=== PATIENT | female | born 1970 | race Caucasian/White ===

== ENCOUNTER 2016-10-21 13:03 | Inpatient (IN) | payer OTHER ==
[2016-10-21 14:42] VITALS: BMI 22.3
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
--- NOTE | 2016-10-21 20:27 | HP ---
COWS - Scale Resting Pulse: 0= [place] 80 or Below Sweatin=Flushed/Facial Moisture Restless Observation: 1= Difficult to Sit Still Pupil Size: 0= Normal to Room Light Bone or Joint Aches: 2= Severe Diffuse Aches Runny Nose/ Eye Tearin= Runny Nose/Eyes GI Upset > 30mins: 2= Nausea/Diarrhea Tremor Observation: 2= Slight Tremor Visible Yawning Observation: 1= 1-2x During Session Anxiety or Irritability: 1=Feels Anxious/Irritable Goose Flesh Skin: 3=Piloerection COWS Score: 16 Admission ROS S - HPI Chief Complaint: WITHDRAWAL SYMPTOMS Allergies/Adverse Reactions: Allergies Allergy/AdvReac Type Severity Reaction Status Date / Time codeine [Codeine] Allergy Mild Rash Verified 10/21/16 15:26 History of Present Illness: 46 Y.O. WOMAN WITH AN EXTENSIVE HISTORY OF OPIOID DEPENDENCE IS SEEKING DETOX. HER LAST ADMISSION HERE WAS IN 03/2016. CLIENT RETURNS FROM [facility] ER WHERE SHE WAS TREATED FOR A CLOSED RIGHT CLAVICULAR FRACTURE. Exam Limitations: Physical Impairment (RIGHT CLAVICULAR FX; WEARING A SHOULDER IMMOBILIZER. AMBULATES WITH A CANE.) - Ebola screening Have you traveled outside of the country in the last 21 days: No Have you had contact with anyone from an Ebola affected area: No Have you been sick,other than usual withdrawal symptoms: No Do you have a fever: No - Review of Systems Constitutional: Chills, Diaphoresis, Loss of Appetite, Unintentional Wgt. Loss EENT: reports: Tearing, Nose Congestion Respiratory: reports: Shortness of Breath Cardiac: reports: Irregular Heart Rate, Lightheadedness GI: reports: Diarrhea, Nausea, Poor Appetite, Vomiting : reports: No Symptoms Reported Musculoskeletal: reports: Back Pain, Other (RIGHT SHOULDER PAIN; LEFT HIP PAIN) Integumentary: reports: Bruising (RIGHT SHOULDER) Neuro: reports: Numbness (B/L UPPER AND LOWER EXTREMITIES), Tremors Endocrine: reports: No Symptoms Reported Hematology: reports: Easy Bleeding (Factor 5 leiden, hyperhomocysteinemia, hemochromatosis), Easy Bruising Psychiatric: reports: Orientated x3, Anxious, Depressed Other Systems: Reviewed and Negative Patient History - Patient Medical History Hx Anemia: Yes Hx Asthma: Yes (Albuterol) Hx Chronic Obstructive Pulmonary Disease (COPD): Yes Hx Cancer: No Hx Cardiac Disorders: No Hx Congestive Heart Failure: No Hx Hypertension: No Hx Hypercholesterolemia: No Hx Pacemaker: No HX Cerebrovascular Accident: No Hx Seizures: No Hx Dementia: No Hx Diabetes: No Hx Gastrointestinal Disorders: Yes (S/P GASTRIC BYPASS SX) Hx Liver Disease: Yes (hemochromatosis) Hx Genitourinary Disorders: No Hx Sexually Transmitted Disorders: No Hx Renal Disease (ESRD): No Hx Thyroid Disease: No Hx Human Immunodeficiency Virus (HIV): No (NEGATIVE HX) Hx Hepatitis C: No Hx Depression: Yes Hx Suicide Attempt: Yes (AT AGE 13) Hx Bipolar Disorder: No Hx Schizophrenia: No - Patient Surgical History Past Surgical History: Yes Hx Neurologic Surgery: No Hx Cataract Extraction: No Hx Cardiac Surgery: No Hx Lung Surgery: No Hx Breast Surgery: No Hx Abdominal Surgery: Yes (lap gastric bypass [id number]) Hx Appendectomy: No Hx Cholecystectomy: Yes (1990) Hx Genitourinary Surgery: No Hx Section: No Hx Orthopedic Surgery: No Other Surgical History: Gastric bypass in 2001 Bladder sx in 2003; TUBAL LIGATION 1991 Anesthesia Reaction: No - PPD History Previous Implant?: Yes Documented Results: Negative w/proof Implanted On Prior R Admission?: Yes Date: 03/25/16 Results: 0 PPD to be Administered?: No - Reproductive History Patient is a Female of Child Bearing Age (11 -55 yrs old): No Last Menstrual Period: 07/17/11 - Smoking Cessation Smoking history: Current some day smoker Have you smoked in the past 12 months: Yes Aproximately how many cigarettes per day: 25 Hx Chewing Tobacco Use: No Initiated information on smoking cessation: Yes 'Breaking Loose' booklet given: 10/21/16 - Substance & Tx. History Hx Alcohol Use: No Hx Substance Use: Yes Substance Use Type: Heroin Hx Substance Use Treatment: Yes (DETOX AND REHAB ) - Substances Abused Heroin Route: Inhalation Frequency: Daily Amount used: 15-20 bags Age of first use: 36 Date of Last Use: 10/21/16 Methadone Route: Oral Frequency: 3-6 times per week Amount used: 10mg Age of first use: 38 Date of Last Use: 10/17/16 Marijuana/Hashish Route: Smoking Frequency: Daily Amount used: 1-2 JOINTS Age of first use: 15 Date of Last Use: 10/21/16 Family Disease History - Family Disease History Family Disease History: Other: Father (alcohol and dsa), Mother (alcohol and dsa ) Admission Physical Exam [facility] - Vital Signs Vital Signs: Vital Signs - 24 hr 10/21/16 14:39 Temperature 96 F L Pulse Rate 79 Respiratory 19 Rate Blood Pressure 130/74 - Physical General Appearance: Yes: Tremorous, Irritable, Anxious HEENTM: Yes: Normal Voice, PRUDENCIO, Pharynx Normal, Tm's normal Respiratory: Yes: Chest Non-Tender, Lungs Clear, Normal Breath Sounds, No Respiratory Distress, No Accessory Muscle Use Neck: Yes: No masses,lesions,Nodules, Trachea in good position Breast: Yes: Breast Exam Deferred Cardiology: Yes: Regular Rhythm, Regular Rate Abdominal: Yes: Flat, Soft Genitourinary: Yes: Other (NO COMPLAINTS REPORTED) Back: Yes: Normal Inspection Musculoskeletal: Yes: Back pain, Joint Stiffness, Joint swelling (RIGHT SHOULDER ), Muscle Pain, Other (CLOSED RIGHT CLAVICULAR FX; REPORTS SHE NEEDS LEFT HIP REPLACEMENT SX. AMBULATES WITH A CANE) Extremities: Yes: Swelling (B/L LE), Calf Tenderness Neurological: Yes: Fully Oriented, Alert, Normal Mood/Affect, Normal Response Integumentary: Yes: Pitting Edema (B/L LE EX), Other (BRUISE ON RIGHT SHOULDER) Lymphatic: Yes: Within Normal Limits - Diagnostic (1) Cannabis dependence Current Visit: Yes Status: Chronic (2) Closed right clavicular fracture Current Visit: Yes Status: Acute Qualifiers: Encounter type: initial encounter Clavicle location: lateral end Fracture alignment: displaced Qualified Code(s): S42.031A - Displaced fracture of lateral end of right clavicle, initial encounter for closed fracture (3) Nicotine dependence Current Visit: Yes Status: Chronic (4) Opioid dependence with withdrawal Current Visit: Yes Status: Chronic (5) Asthma Current Visit: Yes Status: Chronic (6) chronic edema of legs Current Visit: Yes Status: Chronic (7) History of cellulitis Current Visit: Yes Status: Acute (8) History of DVT (deep vein thrombosis) Current Visit: Yes Status: Acute Comment: REPORTS SHE HAS NOT TAKEN HER COUMADIN IN 2 WEEKS Cleared for Admission [facility] - Detox or Rehab [facility] Level of Care: Medically Managed Detox Regimen/Protocol: Methadone [facility] Breath Alcohol Content Breath Alcohol Content: 0 Urine Pregancy Test - Result Urine Test Results: Negative- NO Line Present Urine Drug Screen - Results Drug Screen Negative: No Urine Drug Screen Results: THC-Marijuana, OPI-Opiates, MTD-Methadone
[2016-10-21] MEDS ORDERED: MAGNESIUM HYDROX 2400MG/30ML ORAL SUSPENSION 30 ML CUP PO PRN (20:49)
[2016-10-21] MEDS ORDERED: MAGNESIUM CITRATE 300 ML BOTTLE PO PRN (20:49)
[2016-10-21] MEDS ORDERED: IBUPROFEN 400 MG TABLET (FP) PO PRN (20:49)
[2016-10-21] MEDS ORDERED: METHADONE HCL 10 MG TABLET (FOR DETOX USE ONLY) PO ONE ×2 (20:49→23:00)
[2016-10-21] MEDS ORDERED: guaiFENesin/D-METHORPHAN HB 10 ML UNIT-DOSE CUPS PO PRN (20:49)
[2016-10-21] MEDS ORDERED: LOPERAMIDE HCL 2 MG CAPSULE PO PRN (20:49)
[2016-10-21] MEDS ORDERED: MAG HYDROX/AL HYDROX/SIMETH 30 ML UNIT-DOSE CUP PO PRN (20:49)
[2016-10-21] MEDS ORDERED: MENTHOL/PHENOL 1 EACH UD MM PRN (20:49)
[2016-10-21] MEDS ORDERED: diphenhydrAMINE HCL 50 MG CAPSULE PO PRN (20:49)
[2016-10-21] MEDS ORDERED: P-EPHED 60MG/TRIPROLIDI 2.5MG TABLET PO PRN (20:49)
[2016-10-21] MEDS: THIAMINE HCL 100 MG TABLET (FP) PO SCH (22:39)
[2016-10-21] MEDS: diazePAM 5 MG TABLET PO PRN (22:39)
[2016-10-21] MEDS: HYDROCHLOROTHIAZIDE 25 MG TABLET (FP) PO SCH (22:39)
[2016-10-22] MEDS ORDERED: IBUPROFEN 400 MG TABLET (FP) PO SCH (09:45)
[2016-10-22] MEDS ORDERED: METHADONE HCL 10 MG TABLET (FOR DETOX USE ONLY) PO ONE (10:00)
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
[2016-10-22 10:21] LABS: ALBUMIN 3.7 g/dl (3.4-5.0); ALK PHOS 153 U/L (45-117); ANION GAP 8 (8-16); BILIRUBIN,TOTAL 0.4 mg/dL (0.2-1.0); CALCIUM 9.3 mg/dL (8.5-10.1); CO2 28 mmol/L (21-32); COCKROFT - GAULT 106.7345; CREATININE 0.6 mg/dL (0.55-1.02); GLUCOSE,RANDOM 105 mg/dL (74-106); SGOT/AST 27 U/L (15-37); SGPT/ALT 19 U/L (12-78); TOT PROT 6.8 g/dl (6.4-8.2)
[2016-10-22 10:27] LABS: MCH 30.4 pg (25.7-33.7); MCHC 33.7 g/dl (32.0-36.0); MEAN CELL VOLUME 90.1 fl (80-96); PLATELET COUNT 239 K/MM3 (134-434); RDW 15.8 % (11.6-15.6); WHITE BLOOD COUNT 7.4 K/mm3 (4.0-10.0)
[2016-10-22 10:45] LABS: INR 1.06 (0.82-1.09); PROTHROMBIN TIME (PATIENT) 11.7 SEC (9.98-11.88)
[2016-10-22] MEDS: LIDOCAINE 5% TOPICAL PATCH TP SCH (10:50)
[2016-10-22] MEDS: BUDESONIDE/FORMETEROL FUMARATE 80/4.5 mcg INHALER IH PRN ×2 (10:51→22:20)
[2016-10-22] MEDS: diazePAM 5 MG TABLET PO PRN ×3 (10:52→22:20)
[2016-10-22] MEDS: FOLIC ACID 1 MG TABLET (FP) PO SCH (10:52)
[2016-10-22] MEDS: METHYL SALICYLATE/MENTHOL OINT 30 GM TUBE TP SCH ×2 (10:53→22:46)
[2016-10-22] MEDS: HYDROCHLOROTHIAZIDE 25 MG TABLET (FP) PO SCH ×2 (10:53→22:20)
[2016-10-22] MEDS: NICOTINE 21 MG/24 HOURS TOPICAL PATCH TD SCH (10:56)
--- NOTE | 2016-10-22 11:00 | PN ---
BHS COWS - Scale Resting Pulse: 1= [place] 81-100 Sweatin=Flushed/Facial Moisture Restless Observation: 1= Difficult to Sit Still Pupil Size: 0= Normal to Room Light Bone or Joint Aches: 2= Severe Diffuse Aches Runny Nose/ Eye Tearin= Nasal Congestion GI Upset > 30mins: 2= Nausea/Diarrhea Tremor Observation of Outstretched Hands: 2= Slight Tremor Visible Yawning Observation: 2= >3x During Session Anxiety or Irritability: 2=Irritable/Anxious Goose Flesh Skin: 0=Smooth Skin COWS Score: 15 BHS Progress Note (SOAP) Subjective: clavicle/shoulder pain sweats shakes interrupted sleep body aches Objective: 10/22/16 11:00 Vital Signs Temperature 98.6 F 10/22/16 09:39 Pulse Rate 84 10/22/16 09:39 Respiratory Rate 20 10/22/16 09:39 Blood Pressure 146/85 10/22/16 09:39 O2 Sat by Pulse Oximetry (%) Laboratory Tests 10/22/16 06:00 Sodium 139 Potassium 4.8 Chloride 103 Carbon Dioxide 28 Anion Gap 8 BUN 13 Creatinine 0.6 Creat Clearance w eGFR > 60 Random Glucose 105 D Calcium 9.3 Total Bilirubin 0.4 D AST 27 D ALT 19 D Alkaline Phosphatase 153 H D Total Protein 6.8 Albumin 3.7 labs pending awake/alert ambulating no acute distress Assessment: 10/22/16 11:01 withdrawal sx Plan: continue detox increase fluids motrin 800 tid lidocaine patch cont immobolizer for shoulder analgesic balhuang cortez tx
--- NOTE | 2016-10-22 11:37 | EKG ---
Test Reason : Blood Pressure : / mmHG Vent. Rate : 073 BPM Atrial Rate : 073 BPM P-R Int : 104 ms QRS Dur : 072 ms QT Int : 410 ms P-R-T Axes : 033 067 054 degrees QTc Int : 451 ms SINUS RHYTHM WITH SHORT CO OTHERWISE NORMAL ECG NO PREVIOUS ECGS AVAILABLE Confirmed by GAGAN PALAM, RISHABH ([id number]) on 10/22/2016 11:36:48 AM Referred By: Confirmed By:RISHABH FARAH MD
[2016-10-22] MEDS: ALBUTEROL SO4 2.5/IPRATROPIUM 0.5 INH SOL 3 ML VIAL.NEB. NEB SCH ×3 (12:00→23:05)
[2016-10-22] MEDS: ALBUTEROL SO4 6.7 GM HFA INHALER IH PRN ×2 (13:48→17:13)
[2016-10-22 15:24] LABS: URINE APPEARANCE CLEAR; URINE BILIRUBIN NEGATIVE (NEGATIVE); URINE BLOOD NEGATIVE (NEGATIVE); URINE COLOR YELLOW; URINE GLUCOSE (UA) NEGATIVE (NEGATIVE); URINE KETONE TRACE (NEGATIVE); URINE LEUK ESTERASE NEGATIVE (NEGATIVE); URINE NITRITE NEGATIVE (NEGATIVE); URINE PROTEIN NEGATIVE (NEGATIVE); URINE UROBILINOGEN 4.0 E.U/dl E.U./dl (0.2-1.0)
[2016-10-22] MEDS: IBUPROFEN 400 MG TABLET (FP) PO PRN (17:11)
[2016-10-22] MEDS: WARFARIN NA 10 MG TABLET (FP) PO SCH (17:12)
[2016-10-22] MEDS: NICOTINE POLACRILEX 2 MG GUM BC PRN ×2 (19:29→23:05)
[2016-10-22] MEDS: THIAMINE HCL 100 MG TABLET (FP) PO SCH (22:20)
[2016-10-22] MEDS: ZOLPIDEM TARTRATE 5 MG TABLET PO PRN (22:20)
[2016-10-23] MEDS: diazePAM 5 MG TABLET PO PRN ×5 (06:21→23:59)
[2016-10-23] MEDS: ALBUTEROL SO4 2.5/IPRATROPIUM 0.5 INH SOL 3 ML VIAL.NEB. NEB SCH ×2 (06:22→12:00)
[2016-10-23] MEDS ORDERED: METHADONE HCL 5 MG TABLET (FOR DETOX USE ONLY) PO ONE (10:00)
[2016-10-23] MEDS: METHYL SALICYLATE/MENTHOL OINT 30 GM TUBE TP SCH ×2 (10:44→22:25)
[2016-10-23] MEDS: BUDESONIDE/FORMETEROL FUMARATE 80/4.5 mcg INHALER IH PRN ×2 (10:45→22:26)
[2016-10-23] MEDS: ALBUTEROL SO4 6.7 GM HFA INHALER IH PRN ×2 (10:45→22:26)
[2016-10-23] MEDS: FOLIC ACID 1 MG TABLET (FP) PO SCH (10:45)
[2016-10-23] MEDS: HYDROCHLOROTHIAZIDE 25 MG TABLET (FP) PO SCH ×2 (10:46→22:25)
[2016-10-23] MEDS: LIDOCAINE 5% TOPICAL PATCH TP SCH (10:46)
[2016-10-23] MEDS: NICOTINE 21 MG/24 HOURS TOPICAL PATCH TD SCH (10:47)
[2016-10-23] MEDS: NICOTINE POLACRILEX 2 MG GUM BC PRN ×3 (10:52→17:48)
--- NOTE | 2016-10-23 11:28 | PN ---
BHS COWS - Scale Resting Pulse: 1= [place] 81-100 Sweatin=Flushed/Facial Moisture Restless Observation: 0= Sits Still Pupil Size: 0= Normal to Room Light Bone or Joint Aches: 2= Severe Diffuse Aches Runny Nose/ Eye Tearin= Runny Nose/Eyes GI Upset > 30mins: 0= None Tremor Observation of Outstretched Hands: 2= Slight Tremor Visible Yawning Observation: 2= >3x During Session Anxiety or Irritability: 2=Irritable/Anxious Goose Flesh Skin: 0=Smooth Skin COWS Score: 13 BHS Progress Note (SOAP) Subjective: agitation anxiety sweats shakes body aches Objective: 10/23/16 11:27 Vital Signs Temperature 97.9 F 10/23/16 10:36 Pulse Rate 82 10/23/16 10:36 Respiratory Rate 18 10/23/16 10:36 Blood Pressure 124/81 10/23/16 10:36 O2 Sat by Pulse Oximetry (%) Laboratory Tests 10/22/16 10/22/16 10/22/16 06:00 06:00 06:00 WBC 7.4 D RBC 3.94 Hgb 12.0 Hct 35.5 MCV 90.1 MCHC 33.7 RDW 15.8 H Plt Count 239 MPV 10.0 INR Sodium 139 Potassium 4.8 Chloride 103 Carbon Dioxide 28 Anion Gap 8 BUN 13 Creatinine 0.6 Creat Clearance w eGFR > 60 Random Glucose 105 D Calcium 9.3 Total Bilirubin 0.4 D AST 27 D ALT 19 D Alkaline Phosphatase 153 H D Total Protein 6.8 Albumin 3.7 Urine Color Urine Appearance Urine pH Ur Specific [place] Urine Protein Urine Glucose (UA) Urine Ketones Urine Blood Urine Nitrite Urine Bilirubin Urine Urobilinogen Ur Leukocyte Esterase RPR Titer Nonreactive 10/22/16 10/22/16 07:00 09:50 WBC RBC Hgb Hct MCV MCHC RDW Plt Count MPV INR 1.06 D Sodium Potassium Chloride Carbon Dioxide Anion Gap BUN Creatinine Creat Clearance w eGFR Random Glucose Calcium Total Bilirubin AST ALT Alkaline Phosphatase Total Protein Albumin Urine Color Yellow Urine Appearance Clear Urine pH 6.0 Ur Specific [place] 1.015 Urine Protein Negative Urine Glucose (UA) Negative Urine Ketones Trace H Urine Blood Negative Urine Nitrite Negative Urine Bilirubin Negative Urine Urobilinogen 4.0 e.u/dl H Ur Leukocyte Esterase Negative RPR Titer awake/alert ambulating no acute distress Assessment: 10/23/16 11:27 withdrawal sx Plan: continue detox increase fluids
[2016-10-23] MEDS: WARFARIN NA 10 MG TABLET (FP) PO SCH (17:48)
[2016-10-23] MEDS: THIAMINE HCL 100 MG TABLET (FP) PO SCH (22:24)
[2016-10-23] MEDS: ZOLPIDEM TARTRATE 5 MG TABLET PO PRN (22:24)
[2016-10-24] MEDS: diazePAM 5 MG TABLET PO PRN ×4 (04:14→17:09)
[2016-10-24] MEDS: ALBUTEROL SO4 2.5/IPRATROPIUM 0.5 INH SOL 3 ML VIAL.NEB. NEB SCH ×5 (06:47→23:08)
[2016-10-24] MEDS ORDERED: METHADONE HCL 5 MG TABLET (FOR DETOX USE ONLY) PO ONE (10:00)
[2016-10-24 10:15] LABS: INR 1.61 (0.82-1.09); PROTHROMBIN TIME (PATIENT) 17.9 SEC (9.98-11.88)
[2016-10-24] MEDS: METHYL SALICYLATE/MENTHOL OINT 30 GM TUBE TP SCH ×2 (11:22→22:23)
[2016-10-24] MEDS: FOLIC ACID 1 MG TABLET (FP) PO SCH (11:22)
[2016-10-24] MEDS: LIDOCAINE 5% TOPICAL PATCH TP SCH (11:23)
[2016-10-24] MEDS: HYDROCHLOROTHIAZIDE 25 MG TABLET (FP) PO SCH ×2 (11:23→22:24)
[2016-10-24] MEDS: NICOTINE 21 MG/24 HOURS TOPICAL PATCH TD SCH (11:24)
[2016-10-24] MEDS: NICOTINE POLACRILEX 2 MG GUM BC PRN (12:46)
--- NOTE | 2016-10-24 14:18 | PN ---
S Progress Note (SOAP) Subjective: ALERT,IRRITABLE,ANXIOUS,INTERRUPTED SLEEP,PAIN IN THE BODY AND BACK Objective: 10/24/16 14:15 Vital Signs Temperature 98.2 F 10/24/16 10:00 Pulse Rate 88 10/24/16 10:00 Respiratory Rate 18 10/24/16 10:00 Blood Pressure 100/68 10/24/16 10:00 O2 Sat by Pulse Oximetry (%) 10/24/16 14:16 Laboratory Last Values WBC 7.4 K/mm3 (4.0-10.0) D 10/22/16 06:00 RBC 3.94 M/mm3 (3.60-5.2) 10/22/16 06:00 Hgb 12.0 GM/dL (10.7-15.3) 10/22/16 06:00 Hct 35.5 % (32.4-45.2) 10/22/16 06:00 MCV 90.1 fl (80-96) 10/22/16 06:00 MCHC 33.7 g/dl (32.0-36.0) 10/22/16 06:00 RDW 15.8 % (11.6-15.6) H 10/22/16 06:00 Plt Count 239 K/MM3 (134-434) 10/22/16 06:00 MPV 10.0 fl (7.5-11.1) 10/22/16 06:00 INR 1.61 (0.82-1.09) H D 10/24/16 07:50 Sodium 139 mmol/L (136-145) 10/22/16 06:00 Potassium 4.8 mmol/L (3.5-5.1) 10/22/16 06:00 Chloride 103 mmol/L (98-107) 10/22/16 06:00 Carbon Dioxide 28 mmol/L (21-32) 10/22/16 06:00 Anion Gap 8 (8-16) 10/22/16 06:00 BUN 13 mg/dL (7-18) 10/22/16 06:00 Creatinine 0.6 mg/dL (0.55-1.02) 10/22/16 06:00 Creat Clearance w eGFR > 60 (>60) 10/22/16 06:00 Random Glucose 105 mg/dL (74-106) D 10/22/16 06:00 Calcium 9.3 mg/dL (8.5-10.1) 10/22/16 06:00 Total Bilirubin 0.4 mg/dL (0.2-1.0) D 10/22/16 06:00 AST 27 U/L (15-37) D 10/22/16 06:00 ALT 19 U/L (12-78) D 10/22/16 06:00 Alkaline Phosphatase 153 U/L (45-117) H D 10/22/16 06:00 Total Protein 6.8 g/dl (6.4-8.2) 10/22/16 06:00 Albumin 3.7 g/dl (3.4-5.0) 10/22/16 06:00 Urine Color Yellow 10/22/16 09:50 Urine Appearance Clear 10/22/16 09:50 Urine pH 6.0 (5.0-8.0) 10/22/16 09:50 Ur Specific [place] 1.015 (1.005-1.025) 10/22/16 09:50 Urine Protein Negative (NEGATIVE) 10/22/16 09:50 Urine Glucose (UA) Negative (NEGATIVE) 10/22/16 09:50 Urine Ketones Trace (NEGATIVE) H 10/22/16 09:50 Urine Blood Negative (NEGATIVE) 10/22/16 09:50 Urine Nitrite Negative (NEGATIVE) 10/22/16 09:50 Urine Bilirubin Negative (NEGATIVE) 10/22/16 09:50 Urine Urobilinogen 4.0 e.u/dl E.U./dl (0.2-1.0) H 10/22/16 09:50 Ur Leukocyte Esterase Negative (NEGATIVE) 10/22/16 09:50 RPR Titer Nonreactive (NONREACTIVE) 10/22/16 06:00 10/24/16 14:17 Assessment: 10/24/16 14:17 WITHDRAWAL SYMPTOM Plan: CONTINUE DETOX,INR IN AM
[2016-10-24] MEDS: IBUPROFEN 400 MG TABLET (FP) PO PRN (17:08)
[2016-10-24] MEDS: WARFARIN NA 10 MG TABLET (FP) PO SCH (17:09)
[2016-10-24] MEDS: BUDESONIDE/FORMETEROL FUMARATE 80/4.5 mcg INHALER IH PRN (22:24)
[2016-10-24] MEDS: THIAMINE HCL 100 MG TABLET (FP) PO SCH (22:24)
[2016-10-24] MEDS: ZOLPIDEM TARTRATE 5 MG TABLET PO PRN (22:24)
[2016-10-24] MEDS: ALBUTEROL SO4 6.7 GM HFA INHALER IH PRN (22:24)
[2016-10-25] MEDS: hydrOXYzine PAMOATE 50 MG CAPSULE (FP) PO PRN ×3 (03:02→22:19)
[2016-10-25] MEDS: ALBUTEROL SO4 2.5/IPRATROPIUM 0.5 INH SOL 3 ML VIAL.NEB. NEB SCH ×3 (05:29→23:29)
[2016-10-25] MEDS ORDERED: METHADONE HCL 10 MG TABLET (FOR DETOX USE ONLY) PO ONE (10:00)
[2016-10-25 10:34] LABS: INR 2.49 (0.82-1.09); PROTHROMBIN TIME (PATIENT) 27.9 SEC (9.98-11.88)
[2016-10-25] MEDS: BUDESONIDE/FORMETEROL FUMARATE 80/4.5 mcg INHALER IH PRN (10:51)
[2016-10-25] MEDS: HYDROCHLOROTHIAZIDE 25 MG TABLET (FP) PO SCH ×2 (10:52→22:19)
[2016-10-25] MEDS: METHYL SALICYLATE/MENTHOL OINT 30 GM TUBE TP SCH ×2 (10:52→22:18)
[2016-10-25] MEDS: FOLIC ACID 1 MG TABLET (FP) PO SCH (10:52)
[2016-10-25] MEDS: ALBUTEROL SO4 6.7 GM HFA INHALER IH PRN (10:52)
[2016-10-25] MEDS: NICOTINE 21 MG/24 HOURS TOPICAL PATCH TD SCH (10:53)
[2016-10-25] MEDS: LIDOCAINE 5% TOPICAL PATCH TP SCH (10:55)
--- NOTE | 2016-10-25 12:30 | PN ---
S Progress Note (SOAP) Subjective: ALERT,IRRITABLE,ANXIOUS,INTERRUPTED SLEEP,TREMOR Objective: 10/25/16 12:29 Vital Signs Temperature 98.1 F 10/25/16 09:51 Pulse Rate 81 10/25/16 09:51 Respiratory Rate 16 10/25/16 09:51 Blood Pressure 118/86 10/25/16 09:51 O2 Sat by Pulse Oximetry (%) Assessment: 10/25/16 12:30 WITHDRAWAL SYMPTOM Plan: CONTINUE DETOX
[2016-10-25] MEDS: WARFARIN NA 10 MG TABLET (FP) PO SCH (17:29)
--- NOTE | 2016-10-25 17:30 | PN ---
[facility] Progress Note Note: Laboratory Results - last 24 hr 10/25/16 07:40 INR 2.49 H D therapeutic range for prevention of dvt history on coumadin 10 mgs po daily repeat inr in am
[2016-10-25] MEDS: ZOLPIDEM TARTRATE 5 MG TABLET PO PRN (21:20)
[2016-10-25] MEDS: THIAMINE HCL 100 MG TABLET (FP) PO SCH (22:19)
[2016-10-26] MEDS: ALBUTEROL SO4 2.5/IPRATROPIUM 0.5 INH SOL 3 ML VIAL.NEB. NEB SCH (05:30)
[2016-10-26] MEDS: IBUPROFEN 400 MG TABLET (FP) PO PRN (05:31)
[2016-10-26] MEDS ORDERED: METHADONE HCL 5 MG TABLET (FOR DETOX USE ONLY) PO ONE (06:00)
--- NOTE | 2016-10-26 08:55 | DS ---
[facility] Detox Discharge Summary Admission Date: 10/21/16 Discharge Date: 10/26/16 - History Present History: Cannabis Dependence, Opioid Dependence, Sedative Dependence - Physical Exam Results Vital Signs: Vital Signs Temperature 96.3 F L 10/26/16 06:00 Pulse Rate 82 10/26/16 06:00 Respiratory Rate 16 10/26/16 06:00 Blood Pressure 120/79 10/26/16 06:00 O2 Sat by Pulse Oximetry (%) - Treatment Hospital Course: Detox Protocol Followed, Detoxed Safely, Responded well, Discharged Condition Good, Rehab Referral Accepted - Medication Discharge Medications: Ambulatory Orders Albuterol Sulfate Inhaler - [Ventolin Hfa Inhaler -] 2 inh PO Q4H PRN 10/21/16 Folic Acid - 2 mg PO DAILY 10/21/16 Hydrochlorothiazide [Hctz -] 25 mg PO BID 10/21/16 Salmeterol/Fluticasone [Advair 250Mcg/50Mcg] 1 inh PO BID PRN 10/21/16 Warfarin Na [Coumadin] 10 mg PO DAILY@1800 10/21/16 - Diagnosis (1) Closed right clavicular fracture Current Visit: Yes Status: Acute Qualifiers: Encounter type: initial encounter Clavicle location: lateral end Fracture alignment: displaced Qualified Code(s): S42.031A - Displaced fracture of lateral end of right clavicle, initial encounter for closed fracture (2) History of DVT (deep vein thrombosis) Current Visit: Yes Status: Suspected (3) History of cellulitis Current Visit: Yes Status: Suspected (4) Asthma Current Visit: Yes Status: Chronic (5) Cannabis dependence Current Visit: Yes Status: Chronic (6) Nicotine dependence Current Visit: Yes Status: Chronic Qualifiers: Nicotine product type: cigarettes Substance use status: uncomplicated Qualified Code(s): F17.210 - Nicotine dependence, cigarettes, uncomplicated (7) Opioid dependence with withdrawal Current Visit: Yes Status: Chronic (8) chronic edema of legs Current Visit: Yes Status: Chronic (9) Weight decreased Current Visit: No Status: Active (10) anxiety and depression Current Visit: No Status: Active (11) cellulitis of righ forearm Current Visit: No Status: Active (12) old dvt of right leg Current Visit: No Status: Resolved (13) Sedative/hypnotic withdrawal without complication Current Visit: Yes Status: Chronic (14) Substance induced mood disorder Current Visit: No Status: Acute (15) Substance-induced sleep disorder Current Visit: No Status: Acute (16) Cellulitis of lower extremity Current Visit: No Status: Chronic - AMA Did Patient Leave Against Medical Advice: No
[2016-10-26] MEDS: LIDOCAINE 5% TOPICAL PATCH TP SCH (10:31)
[2016-10-26] MEDS: HYDROCHLOROTHIAZIDE 25 MG TABLET (FP) PO SCH ×2 (10:31→14:24)
[2016-10-26] MEDS: BUDESONIDE/FORMETEROL FUMARATE 80/4.5 mcg INHALER IH PRN ×2 (10:31→21:19)
[2016-10-26] MEDS: FOLIC ACID 1 MG TABLET (FP) PO SCH (10:31)
[2016-10-26] MEDS: NICOTINE 21 MG/24 HOURS TOPICAL PATCH TD SCH (10:32)
[2016-10-26] MEDS: METHYL SALICYLATE/MENTHOL OINT 30 GM TUBE TP SCH ×2 (10:33→21:19)
--- NOTE | 2016-10-26 11:57 | HP ---
[facility] Rehab Assess/Revision - Admission History Admitted to Rehab from: [facility] [place] Date of Admission to Rehab: 10/26/16 - Vital signs Vital Signs: Vital Signs Period Temp Pulse Resp BP Sys/Mckenna Pulse Ox Last 24 Hr 96.3 F-98.2 F 58-91 16-20 91-145/62-88 - Findings Detox History & Physical reviewed: Yes Concur with findings: Yes
[2016-10-26] MEDS ORDERED: ALBUTEROL SO4 2.5/IPRATROPIUM 0.5 INH SOL 3 ML VIAL.NEB. NEB PRN (12:02)
--- NOTE | 2016-10-26 13:41 | PN ---
S Progress Note Note: Pt. wants to start OTP while in rehab. Pt. was previously enrolled in [facility] but left because of personal problems. Admit to [facility]
[2016-10-26] MEDS ORDERED: METHADONE HCL 5 MG TABLET PO ONE (14:00)
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
[2016-10-26] MEDS: ZIPRASIDONE 40 MG CAPSULE (FP) PO SCH (15:25)
[2016-10-26] MEDS ORDERED: PT OWN MED DRAWER 7, Y5N ONE ×2 (18:17→21:20)
[2016-10-26] MEDS: WARFARIN NA 10 MG TABLET (FP) PO SCH (18:30)
[2016-10-26 20:53] LABS: INR 2.91 (0.82-1.09); PROTHROMBIN TIME (PATIENT) 32.7 SEC (9.98-11.88)
[2016-10-26] MEDS: THIAMINE HCL 100 MG TABLET (FP) PO SCH (21:15)
[2016-10-26] MEDS: busPIRone HCL 10 MG TABLET (FP) PO SCH (21:17)
[2016-10-26] MEDS: SUVOREXANT 10 MG TABLET PO SCH (21:19)
[2016-10-26] MEDS: ALBUTEROL SO4 6.7 GM HFA INHALER IH PRN (21:20)
[2016-10-27] MEDS: ALBUTEROL SO4 6.7 GM HFA INHALER IH PRN (01:00)
[2016-10-27] MEDS ORDERED: PT OWN MED DRAWER 7, Y5N ONE ×3 (01:01→17:00)
[2016-10-27] MEDS ORDERED: METHADONE HCL 10 MG TABLET PO SCH (06:00)
[2016-10-27] MEDS: ACETAMINOPHEN 325 MG TABLET (FP) PO PRN (06:23)
[2016-10-27] MEDS: HYDROCHLOROTHIAZIDE 25 MG TABLET (FP) PO SCH ×2 (06:24→14:36)
[2016-10-27] MEDS: ZIPRASIDONE 40 MG CAPSULE (FP) PO SCH (10:19)
[2016-10-27] MEDS: METHYL SALICYLATE/MENTHOL OINT 30 GM TUBE TP SCH ×2 (10:19→22:40)
[2016-10-27] MEDS: busPIRone HCL 10 MG TABLET (FP) PO SCH ×2 (10:19→21:11)
[2016-10-27] MEDS: FOLIC ACID 1 MG TABLET (FP) PO SCH (10:19)
[2016-10-27] MEDS: NICOTINE 21 MG/24 HOURS TOPICAL PATCH TD SCH (10:20)
[2016-10-27] MEDS: LIDOCAINE 5% TOPICAL PATCH TP SCH (10:20)
[2016-10-27] MEDS: BUDESONIDE/FORMETEROL FUMARATE 80/4.5 mcg INHALER IH PRN (10:20)
[2016-10-27] MEDS ORDERED: WARFARIN NA 10 MG TABLET (FP) PO SCH (18:00)
[2016-10-27] MEDS: WARFARIN NA 5 MG TABLET (UD) PO SCH (18:30)
[2016-10-27] MEDS: THIAMINE HCL 100 MG TABLET (FP) PO SCH (21:11)
[2016-10-27] MEDS: BUDESONIDE/FORMETEROL FUMARATE 80/4.5 mcg INHALER IH SCH (21:13)
[2016-10-27] MEDS: SUVOREXANT 10 MG TABLET PO SCH (21:13)
[2016-10-27] MEDS: IBUPROFEN 400 MG TABLET (FP) PO PRN (21:14)
[2016-10-28] MEDS: IBUPROFEN 400 MG TABLET (FP) PO PRN ×2 (03:29→21:07)
[2016-10-28] MEDS ORDERED: METHADONE HCL 40 MG DISPERSABLE TABLET PO SCH (06:00)
[2016-10-28] MEDS: HYDROCHLOROTHIAZIDE 25 MG TABLET (FP) PO SCH ×2 (06:12→14:01)
[2016-10-28] MEDS ORDERED: PT OWN MED DRAWER 7, Y5N ONE (08:16)
[2016-10-28] MEDS: LIDOCAINE 5% TOPICAL PATCH TP SCH (10:23)
[2016-10-28] MEDS: NICOTINE 21 MG/24 HOURS TOPICAL PATCH TD SCH (10:23)
[2016-10-28] MEDS: ZIPRASIDONE 40 MG CAPSULE (FP) PO SCH (10:24)
[2016-10-28] MEDS: FOLIC ACID 1 MG TABLET (FP) PO SCH (10:24)
[2016-10-28] MEDS: BUDESONIDE/FORMETEROL FUMARATE 80/4.5 mcg INHALER IH SCH ×2 (10:24→21:08)
[2016-10-28] MEDS: busPIRone HCL 10 MG TABLET (FP) PO SCH ×2 (10:24→21:07)
[2016-10-28] MEDS: METHYL SALICYLATE/MENTHOL OINT 30 GM TUBE TP SCH ×2 (10:27→21:10)
[2016-10-28] MEDS: WARFARIN NA 5 MG TABLET (UD) PO SCH (18:55)
[2016-10-28] MEDS: THIAMINE HCL 100 MG TABLET (FP) PO SCH (21:09)
[2016-10-28] MEDS: SUVOREXANT 10 MG TABLET PO SCH (21:10)
[2016-10-29] MEDS: IBUPROFEN 400 MG TABLET (FP) PO PRN ×3 (03:21→21:14)
[2016-10-29] MEDS ORDERED: METHADONE 40 MG, METHADONE 10 MG PO ONE ×2 (06:00)
[2016-10-29] MEDS ORDERED: METHADONE HCL 10 MG TABLET PO SCH (06:00)
[2016-10-29] MEDS ORDERED: METHADONE 40 MG, METHADONE 20 MG PO SCH (06:00)
[2016-10-29] MEDS ORDERED: METHADONE HCL 10 MG TABLET ONE (06:06)
[2016-10-29] MEDS ORDERED: METHADONE HCL 40 MG DISPERSABLE TABLET ONE (06:07)
[2016-10-29] MEDS: HYDROCHLOROTHIAZIDE 25 MG TABLET (FP) PO SCH ×2 (06:08→14:00)
[2016-10-29] MEDS ORDERED: PT OWN MED DRAWER 7, Y5N ONE (08:30)
[2016-10-29] MEDS: NICOTINE 21 MG/24 HOURS TOPICAL PATCH TD SCH (10:00)
[2016-10-29] MEDS: ZIPRASIDONE 40 MG CAPSULE (FP) PO SCH (10:00)
[2016-10-29] MEDS: BUDESONIDE/FORMETEROL FUMARATE 80/4.5 mcg INHALER IH SCH ×2 (10:00→21:16)
[2016-10-29] MEDS: FOLIC ACID 1 MG TABLET (FP) PO SCH (10:00)
[2016-10-29] MEDS: LIDOCAINE 5% TOPICAL PATCH TP SCH (10:00)
[2016-10-29] MEDS: busPIRone HCL 10 MG TABLET (FP) PO SCH ×2 (10:00→21:14)
[2016-10-29] MEDS: NICOTINE POLACRILEX 2 MG GUM BC PRN ×3 (10:01→18:05)
[2016-10-29] MEDS: METHYL SALICYLATE/MENTHOL OINT 30 GM TUBE TP SCH ×2 (10:01→21:16)
[2016-10-29 10:30] LABS: INR 2.36 (0.82-1.09); PROTHROMBIN TIME (PATIENT) 26.4 SEC (9.98-11.88)
[2016-10-29] MEDS: WARFARIN NA 5 MG TABLET (UD) PO SCH (18:04)
[2016-10-29] MEDS: THIAMINE HCL 100 MG TABLET (FP) PO SCH (21:14)
[2016-10-29] MEDS: SUVOREXANT 10 MG TABLET PO SCH (21:16)
[2016-10-29] MEDS: CALCIUM 500MG/VIT-D 200 UNITS COMBO TABLET (FP) PO SCH (21:17)
[2016-10-30] MEDS: IBUPROFEN 400 MG TABLET (FP) PO PRN ×3 (03:28→23:51)
[2016-10-30] MEDS ORDERED: METHADONE HCL 40 MG DISPERSABLE TABLET ONE (05:59)
[2016-10-30] MEDS ORDERED: METHADONE HCL 10 MG TABLET ONE (05:59)
[2016-10-30] MEDS ORDERED: METHADONE 40 MG, METHADONE 10 MG PO ONE (06:00)
[2016-10-30] MEDS ORDERED: METHADONE HCL 10 MG TABLET PO SCH (06:00)
[2016-10-30] MEDS: HYDROCHLOROTHIAZIDE 25 MG TABLET (FP) PO SCH ×2 (06:03→15:12)
[2016-10-30] MEDS: METHADONE 40 MG, METHADONE 20 MG PO SCH (06:03)
[2016-10-30] MEDS: NICOTINE POLACRILEX 2 MG GUM BC PRN ×3 (07:27→17:56)
[2016-10-30] MEDS: BUDESONIDE/FORMETEROL FUMARATE 80/4.5 mcg INHALER IH SCH ×2 (10:02→21:25)
[2016-10-30] MEDS: busPIRone HCL 10 MG TABLET (FP) PO SCH ×2 (10:02→21:25)
[2016-10-30] MEDS: ZIPRASIDONE 40 MG CAPSULE (FP) PO SCH (10:02)
[2016-10-30] MEDS: CALCIUM 500MG/VIT-D 200 UNITS COMBO TABLET (FP) PO SCH ×2 (10:02→21:25)
[2016-10-30] MEDS: FOLIC ACID 1 MG TABLET (FP) PO SCH (10:02)
[2016-10-30] MEDS: NICOTINE 21 MG/24 HOURS TOPICAL PATCH TD SCH (10:05)
[2016-10-30] MEDS: LIDOCAINE 5% TOPICAL PATCH TP SCH (10:06)
[2016-10-30] MEDS: METHYL SALICYLATE/MENTHOL OINT 30 GM TUBE TP SCH ×2 (10:07→22:08)
[2016-10-30] MEDS: WARFARIN NA 5 MG TABLET (UD) PO SCH (17:56)
[2016-10-30] MEDS ORDERED: PT OWN MED DRAWER 7, Y5N ONE ×2 (19:23→19:27)
[2016-10-30] MEDS: SUVOREXANT 10 MG TABLET PO SCH (21:25)
[2016-10-30] MEDS: THIAMINE HCL 100 MG TABLET (FP) PO SCH (21:25)
[2016-10-31] MEDS: ACETAMINOPHEN 325 MG TABLET (FP) PO PRN ×2 (04:36→21:00)
[2016-10-31] MEDS ORDERED: METHADONE HCL 10 MG TABLET ONE (05:41)
[2016-10-31] MEDS ORDERED: METHADONE HCL 40 MG DISPERSABLE TABLET ONE (05:41)
[2016-10-31] MEDS: HYDROCHLOROTHIAZIDE 25 MG TABLET (FP) PO SCH ×2 (05:59→15:06)
[2016-10-31] MEDS: METHADONE 40 MG, METHADONE 20 MG PO SCH (05:59)
[2016-10-31] MEDS ORDERED: ALBUTEROL SO4 2.5/IPRATROPIUM 0.5 INH SOL 3 ML VIAL.NEB. NEB PRN (07:10)
[2016-10-31] MEDS ORDERED: PT OWN MED DRAWER 7, Y5N ONE (08:46)
[2016-10-31] MEDS: ZIPRASIDONE 40 MG CAPSULE (FP) PO SCH (09:48)
[2016-10-31] MEDS: FOLIC ACID 1 MG TABLET (FP) PO SCH (09:48)
[2016-10-31] MEDS: CALCIUM 500MG/VIT-D 200 UNITS COMBO TABLET (FP) PO SCH ×2 (09:48→21:00)
[2016-10-31] MEDS: busPIRone HCL 10 MG TABLET (FP) PO SCH ×2 (09:48→21:00)
[2016-10-31] MEDS: NICOTINE 21 MG/24 HOURS TOPICAL PATCH TD SCH (09:49)
[2016-10-31] MEDS: IBUPROFEN 400 MG TABLET (FP) PO PRN (09:49)
[2016-10-31] MEDS: LIDOCAINE 5% TOPICAL PATCH TP SCH (09:50)
[2016-10-31] MEDS: NICOTINE POLACRILEX 2 MG GUM BC PRN ×3 (09:50→17:59)
[2016-10-31] MEDS: BUDESONIDE/FORMETEROL FUMARATE 80/4.5 mcg INHALER IH SCH ×2 (09:50→21:02)
[2016-10-31] MEDS: METHYL SALICYLATE/MENTHOL OINT 30 GM TUBE TP SCH ×2 (09:51→21:01)
[2016-10-31] MEDS: WARFARIN NA 5 MG TABLET (UD) PO SCH (17:58)
[2016-10-31] MEDS: THIAMINE HCL 100 MG TABLET (FP) PO SCH (21:00)
[2016-10-31] MEDS: SUVOREXANT 10 MG TABLET PO SCH (21:01)
[2016-11-01] MEDS: IBUPROFEN 400 MG TABLET (FP) PO PRN ×2 (05:09→17:34)
[2016-11-01] MEDS ORDERED: METHADONE HCL 10 MG TABLET ONE (05:46)
[2016-11-01] MEDS ORDERED: METHADONE HCL 40 MG DISPERSABLE TABLET ONE (05:46)
[2016-11-01] MEDS: METHADONE 40 MG, METHADONE 20 MG PO SCH (06:36)
[2016-11-01] MEDS: HYDROCHLOROTHIAZIDE 25 MG TABLET (FP) PO SCH ×2 (06:37→15:02)
[2016-11-01] MEDS ORDERED: PT OWN MED DRAWER 7, Y5N ONE (08:45)
[2016-11-01] MEDS: ALBUTEROL SO4 6.7 GM HFA INHALER IH PRN (09:40)
[2016-11-01] MEDS: BUDESONIDE/FORMETEROL FUMARATE 80/4.5 mcg INHALER IH SCH ×2 (09:40→21:11)
[2016-11-01] MEDS: NICOTINE POLACRILEX 2 MG GUM BC PRN ×4 (09:41→21:13)
[2016-11-01] MEDS: ZIPRASIDONE 40 MG CAPSULE (FP) PO SCH (09:42)
[2016-11-01] MEDS: CALCIUM 500MG/VIT-D 200 UNITS COMBO TABLET (FP) PO SCH ×2 (09:42→21:10)
[2016-11-01] MEDS: FOLIC ACID 1 MG TABLET (FP) PO SCH (09:42)
[2016-11-01] MEDS: busPIRone HCL 10 MG TABLET (FP) PO SCH ×2 (09:42→21:10)
[2016-11-01] MEDS: METHYL SALICYLATE/MENTHOL OINT 30 GM TUBE TP SCH ×2 (09:42→21:11)
[2016-11-01] MEDS: NICOTINE 21 MG/24 HOURS TOPICAL PATCH TD SCH (09:43)
[2016-11-01] MEDS: LIDOCAINE 5% TOPICAL PATCH TP SCH (09:43)
[2016-11-01] MEDS ORDERED: INSULIN (NOVOLOG) ASPART 100 UNITS/ML 10ML VIAL ONE (11:06)
[2016-11-01] MEDS: WARFARIN NA 5 MG TABLET (UD) PO SCH (17:34)
[2016-11-01] MEDS: THIAMINE HCL 100 MG TABLET (FP) PO SCH (21:10)
[2016-11-01] MEDS: ACETAMINOPHEN 325 MG TABLET (FP) PO PRN (21:12)
[2016-11-01] MEDS: SUVOREXANT 10 MG TABLET PO SCH (21:13)
[2016-11-02] MEDS: IBUPROFEN 400 MG TABLET (FP) PO PRN ×3 (04:36→21:16)
[2016-11-02] MEDS ORDERED: METHADONE HCL 40 MG DISPERSABLE TABLET ONE (05:41)
[2016-11-02] MEDS ORDERED: METHADONE HCL 10 MG TABLET ONE (05:41)
[2016-11-02] MEDS: HYDROCHLOROTHIAZIDE 25 MG TABLET (FP) PO SCH ×2 (06:08→15:21)
[2016-11-02] MEDS: METHADONE 40 MG, METHADONE 20 MG PO SCH (06:08)
[2016-11-02] MEDS: NICOTINE POLACRILEX 2 MG GUM BC PRN ×5 (06:10→18:51)
[2016-11-02] MEDS ORDERED: PT OWN MED DRAWER 7, Y5N ONE (08:31)
[2016-11-02] MEDS: ACETAMINOPHEN 325 MG TABLET (FP) PO PRN (10:14)
[2016-11-02] MEDS: ZIPRASIDONE 40 MG CAPSULE (FP) PO SCH (10:14)
[2016-11-02] MEDS: busPIRone HCL 10 MG TABLET (FP) PO SCH ×2 (10:15→21:16)
[2016-11-02] MEDS: CALCIUM 500MG/VIT-D 200 UNITS COMBO TABLET (FP) PO SCH ×2 (10:15→21:16)
[2016-11-02] MEDS: METHYL SALICYLATE/MENTHOL OINT 30 GM TUBE TP SCH ×2 (10:15→21:18)
[2016-11-02] MEDS: BUDESONIDE/FORMETEROL FUMARATE 80/4.5 mcg INHALER IH SCH ×2 (10:15→21:17)
[2016-11-02] MEDS: FOLIC ACID 1 MG TABLET (FP) PO SCH (10:15)
[2016-11-02] MEDS: NICOTINE 21 MG/24 HOURS TOPICAL PATCH TD SCH (10:16)
[2016-11-02] MEDS: LIDOCAINE 5% TOPICAL PATCH TP SCH (10:16)
[2016-11-02] MEDS: THIAMINE HCL 100 MG TABLET (FP) PO SCH (21:16)
[2016-11-02] MEDS: ALBUTEROL SO4 6.7 GM HFA INHALER IH PRN (21:17)
[2016-11-02] MEDS: SUVOREXANT 10 MG TABLET PO SCH (21:18)
[2016-11-03] MEDS ORDERED: METHADONE HCL 10 MG TABLET ONE (03:12)
[2016-11-03] MEDS ORDERED: METHADONE HCL 40 MG DISPERSABLE TABLET ONE (03:12)
[2016-11-03] MEDS: IBUPROFEN 400 MG TABLET (FP) PO PRN (03:26)
[2016-11-03] MEDS: METHADONE 40 MG, METHADONE 20 MG PO SCH (06:25)
[2016-11-03] MEDS: HYDROCHLOROTHIAZIDE 25 MG TABLET (FP) PO SCH (06:26)
[2016-11-03] MEDS: NICOTINE POLACRILEX 2 MG GUM BC PRN ×2 (06:27→09:37)
[2016-11-03 06:52] VITALS: TEMP 97.6
[2016-11-03] MEDS ORDERED: PT OWN MED DRAWER 7, Y5N ONE (08:32)
[2016-11-03] MEDS: FOLIC ACID 1 MG TABLET (FP) PO SCH (09:31)
[2016-11-03] MEDS: METHYL SALICYLATE/MENTHOL OINT 30 GM TUBE TP SCH (09:32)
[2016-11-03] MEDS: busPIRone HCL 10 MG TABLET (FP) PO SCH (09:32)
[2016-11-03] MEDS: CALCIUM 500MG/VIT-D 200 UNITS COMBO TABLET (FP) PO SCH (09:32)
[2016-11-03] MEDS: LIDOCAINE 5% TOPICAL PATCH TP SCH (09:33)
[2016-11-03] MEDS: NICOTINE 21 MG/24 HOURS TOPICAL PATCH TD SCH (09:33)
[2016-11-03] MEDS: BUDESONIDE/FORMETEROL FUMARATE 80/4.5 mcg INHALER IH SCH (09:34)
--- NOTE | 2016-11-03 09:34 | PN ---
[facility] Progress Note Note: Patient has been discharged early.She has met her treatment goals partially and will continue to address her issues on outpatient basis.Patient will continue current medications as per plan.Scripts for 30 days provided.Patient is stable for discharge today.
[2016-11-03] MEDS: ZIPRASIDONE 40 MG CAPSULE (FP) PO SCH (09:36)
[2016-11-03] MEDS: ACETAMINOPHEN 325 MG TABLET (FP) PO PRN (09:36)
[2016-11-03 09:55] VITALS: BP 132/83; PULSE 96
== END 2016-11-03 10:55 | disposition home or self-care (01) | DRG 895 ==
LOC: YASAS 13:03 → Y6N 20:21 → Y3E 10-26 11:19
PROVIDERS: ADMIT Psychiatry & Neurology Psychiatry; ATTEND Psychiatry & Neurology Psychiatry
PROC: HZ2ZZZZ Detoxification Services for Substance Abuse Treatment (ICD-10-PCS; principal; 2016-10-21)
PROC: HZ42ZZZ Group Counseling for Substance Abuse Treatment, Cognitive-Behavioral (ICD-10-PCS; 2016-10-26)
DX: F11.23 Opioid dependence with withdrawal (principal); F19.282 Other psychoactive substance dependence with psychoactive substance-induced sleep disorder; L03.113 Cellulitis of right upper limb; L03.116 Cellulitis of left lower limb; L03.115 Cellulitis of right lower limb; F13.230 Sedative, hypnotic or anxiolytic dependence with withdrawal, uncomplicated; F12.20 Cannabis dependence, uncomplicated; F17.210 Nicotine dependence, cigarettes, uncomplicated; F25.9 Schizoaffective disorder, unspecified; F41.8 Other specified anxiety disorders; F19.24 Other psychoactive substance dependence with psychoactive substance-induced mood disorder; J45.909 Unspecified asthma, uncomplicated; J44.9 Chronic obstructive pulmonary disease, unspecified; R60.0 Localized edema; D64.9 Anemia, unspecified; E83.119 Hemochromatosis, unspecified; Z86.718 Personal history of other venous thrombosis and embolism; Z79.01 Long term (current) use of anticoagulants; Z98.84 Bariatric surgery status; Z90.49 Acquired absence of other specified parts of digestive tract; Z87.898 Personal history of other specified conditions; Z86.69 Personal history of other diseases of the nervous system and sense organs; Z91.5 Personal history of self-harm; S42.001D Fracture of unspecified part of right clavicle, subsequent encounter for fracture with routine healing; X58.XXXD Exposure to other specified factors, subsequent encounter
CPT/HCPCS: 36415; 80053; 81003; 85027; 85610; 86593; 93005; 93010; 94640

== ENCOUNTER 2016-10-21 15:11 | Emergency (ER) | payer OTHER ==
[2016-10-21 15:26] VITALS: BP 105/76; PULSE 72; TEMP 98.2; BMI 22.3
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
== END 2016-10-21 17:43 | disposition other institution (70) ==
LOC: JERFT 15:11
PROC: 2W38XYZ Immobilization of Right Upper Extremity using Other Device (ICD-10-PCS; principal; 2016-10-21)
DX: S42.031A Displaced fracture of lateral end of right clavicle, initial encounter for closed fracture (principal); F11.20 Opioid dependence, uncomplicated; Y00.XXXA Assault by blunt object, initial encounter; Y93.89 Activity, other specified; Y92.89 Other specified places as the place of occurrence of the external cause; Y07.03 Male partner, perpetrator of maltreatment and neglect
CPT/HCPCS: 29240; 73030-TC-RT; 99281-25